=== PATIENT | female | born 1985 | race Caucasian/White ===

== ENCOUNTER 2020-07-16 21:04 | Emergency (ER) | payer MEDICARE ==
[~2020-07-16] VITALS: Ht 165.1 cm; Wt 65.8 kg
[2020-07-16 21:07] VITALS: BP 118/62
[2020-07-16] MEDS ORDERED: LEVETIRACETAM (500MG) 500 MG in IV NS 0.9% 100 ML IV ONE (21:30)
[2020-07-16] MEDS ORDERED: IV NS 0.9% 1,000 ML BAG IV ONE (21:30)
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
[2020-07-16] MEDS ORDERED: LORAZEPAM INJ 2 MG/ML VIAL ONE (21:38)
[2020-07-16] MEDS ORDERED: LORAZEPAM INJ 2 MG/ML VIAL IV ONE (22:00)
[2020-07-16 22:12] LABS: EOSINOPHILS % (AUTO) 1.9 % (0.0-6.0); HEMATOCRIT 37 % (33-45); HEMOGLOBIN 12.3 g/dL (11.5-14.8); LYMPHOCYTES # (AUTO) 2.3 /CMM (0.8-4.8); LYMPHOCYTES % (AUTO) 36.4 % (20.0-44.0); MEAN CORPUSCULAR HGB CONC 33 g/dl (31.0-36.0); MEAN CORPUSCULAR VOLUME 92 fL (82-100); MONOCYTES # (AUTO) 0.4 /CMM (0.1-1.30); MONOCYTES % (AUTO) 6.4 % (2.0-12.0); NEUTROPHILS # (AUTO) 3.5 /CMM (1.8-8.9); NEUTROPHILS % (AUTO) 55.3 % (43.0-81.0); PLATELET COUNT (AUTO) 234 /CMM (150-450); RED BLOOD CELL COUNT(AUTO) 4.02 MIL/uL (4.0-5.2); WHITE BLOOD COUNT (AUTO) 6.4 K/uL (4.3-11.0)
--- NOTE | 2020-07-16 22:37 | NUR ---
MEDICATED PER PA'S ORDER, PT SHELBY WELL. WILL CONT TO MONITOR.
[2020-07-16 22:38] LABS: ALBUMIN 3.4 g/dL (3.4-5.0); BILIRUBIN,DIRECT 0.1 mg/dL (0.0-0.2); BILIRUBIN,TOTAL 0.3 mg/dL (0.2-1.0); CALCIUM, SERUM 8.6 mg/dL (8.5-10.1); CREATININE 0.9 mg/dL (0.6-1.3); MAGNESIUM 2.4 mg/dL (1.8-2.4); POTASSIUM 3.3 mmol/L (3.5-5.1); TOTAL PROTEIN, SERUM 7.1 g/dL (6.4-8.2)
--- NOTE | 2020-07-16 23:29 | NUR ---
REPORT GIVEN TO ELIANE ELLISON FOR PASCUAL.
--- NOTE | 2020-07-16 23:36 | NUR ---
Patient does not wish to proceed with medical care recommended by beryl amor. Patient given information related to possible complications, up to and including , which could occur as a result of leaving the hospital at this time. Patient verbalizes understanding of risks involved due to leaving against medical advice. Patient has signed AMA form.
== END 2020-07-16 23:38 | disposition left against medical advice (07) ==
LOC: ER 21:10
DX: S00.03XA Contusion of scalp, initial encounter (principal); R41.82 Altered mental status, unspecified; F11.20 Opioid dependence, uncomplicated; G89.29 Other chronic pain; R56.9 Unspecified convulsions; R53.83 Other fatigue; W18.09XA Striking against other object with subsequent fall, initial encounter; Y93.89 Activity, other specified; Y92.89 Other specified places as the place of occurrence of the external cause; Y99.8 Other external cause status
CPT/HCPCS: 36415; 80048; 80076; 83735; 84702; 85025; 96361; 96374; 99283; J2060; J7030 ×2; J1953

== ENCOUNTER 2020-11-03 18:35 | Emergency (ER) | payer MEDICARE ==
[~2020-11-03] VITALS: Ht 172.7 cm; Wt 61.2 kg
--- NOTE | 2020-11-03 18:38 | NUR ---
VALDEZ RAMRIES AT BEDSIDE
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
[2020-11-03] MEDS ORDERED: IV NS 0.9% 1,000 ML BAG IV ONE (19:00)
[2020-11-03] MEDS ORDERED: LORAZEPAM INJ 2 MG/ML VIAL IVP ONE (19:00)
[2020-11-03] MEDS ORDERED: LORAZEPAM INJ 2 MG/ML VIAL ONE (19:09)
--- NOTE | 2020-11-03 20:08 | NUR ---
PT ASLEEP, VSS.
--- NOTE | 2020-11-03 21:30 | NUR ---
Patient discharged to home in stable condition. Written and verbal after care instructions given. Patient verbalizes understanding of instruction. Pt wheeled out of the E.D. Pt ubered home.
--- NOTE | 2020-11-03 21:30 | NUR ---
IV removed. Catheter intact and site benign. Pressure and 4x4 applied to site. No bleeding noted.
[2020-11-03 21:31] VITALS: BP 121/63
== END 2020-11-03 21:31 | disposition home or self-care (01) ==
LOC: ER 18:35
DX: R41.82 Altered mental status, unspecified (principal); G89.29 Other chronic pain; F11.20 Opioid dependence, uncomplicated; G40.909 Epilepsy, unspecified, not intractable, without status epilepticus; M54.2 Cervicalgia
CPT/HCPCS: 96361; 96374; 99283; J2060; J7030